=== PATIENT | female | born 1990 | race African-American/Black ===

== ENCOUNTER 2024-01-16 11:17 | Day surgery (SDC) | payer BC ==
[2024-01-09 12:28] VITALS: BMI 36.3
[2024-01-16] MEDS ORDERED: PROPOFOL 20 ML ONE ×3 (12:40→17:12)
[2024-01-16] MEDS ORDERED: MIDAZOLAM HCL 2 MG/2 ML SINGLE DOSE VIAL ONE (12:40)
[2024-01-16] MEDS ORDERED: ceFAZolin SODIUM 1 GM VIAL ONE (12:53)
[2024-01-16] MEDS ORDERED: NITROGLYCERIN 2% OINTMENT - 1GM PACKET TD ONE (12:53)
[2024-01-16] MEDS ORDERED: GENTAMICIN SO4 80 MG/2 ML VIAL ONE (12:53)
[2024-01-16] MEDS ORDERED: LIDOCAINE 1%/EPI 1:100000 (20 ML MULTI DOSE VIAL) ONE (12:54)
[2024-01-16] MEDS ORDERED: BACITRACIN ZINC 15 GM TUBE TOPICAL OINTMENT ONE (12:54)
[2024-01-16] MEDS ORDERED: BUPIVACAINE HCL/EPINEPHRINE/PF 30 ML VIAL IJ ONE (12:54)
[2024-01-16] MEDS ORDERED: PROMETHAZINE HCL 25 MG/1 ML VIAL IVPB PRN (13:51)
[2024-01-16] MEDS ORDERED: ONDANSETRON 4 MG/2 ML VIAL IVPUSH PRN (13:51)
[2024-01-16] MEDS ORDERED: oxyCODONE HCL 5 MG TABLET PO PRN (13:51)
[2024-01-16] MEDS ORDERED: LACTATED RINGERS SOLUTION 1,000 ML IV SCH (14:00)
[2024-01-16] MEDS ORDERED: EPINEPHrine/PF 1 MG/1 ML (1:1,000) AMPULE ONE (14:06)
[2024-01-16] MEDS ORDERED: SODIUM BICARBONATE 8.4% 50 MEQ/50 ML VIAL ONE (14:07)
[2024-01-16] MEDS ORDERED: LIDOCAINE HCL 1%, 10 MG/ML (20ML VIAL) ONE (14:07)
[2024-01-16] MEDS ORDERED: LIDOCAINE HCL 2% (20ML MULTI-DOSE VIAL) ONE (14:15)
[2024-01-16] MEDS ORDERED: ONDANSETRON 4 MG/2 ML VIAL ONE ×2 (14:41→17:22)
[2024-01-16] MEDS ORDERED: DEXAMETHASONE SOD PHOSPHATE 4 MG/1 ML VIAL ONE (14:41)
[2024-01-16] MEDS: BUPIVACAINE HCL/EPINEPHRINE/PF 30 ML VIAL IJ ONE ×2 (14:52→17:30)
[2024-01-16] MEDS ORDERED: MAGNESIUM SULF 50% (8.12 MEQ/2 ML-1 GM VIAL) ONE (16:28)
[2024-01-16] MEDS ORDERED: FENTANYL CITRATE/PF 50 MCG/ML VIAL ONE (17:22)
[2024-01-16] MEDS ORDERED: ACETAMINOPHEN INJECTION 100 ML IVPB ONE (17:22)
[2024-01-16] MEDS: ACETAMINOPHEN 1000 MG/100 ML BAG IVPB ONE (17:55)
[2024-01-16 18:08] VITALS: TEMP 97.3
[2024-01-16 18:27] VITALS: RESP 16
[2024-01-16 18:56] VITALS: BP 112/74; PULSE 88
== END 2024-01-16 18:50 | disposition home or self-care (01) ==
LOC: FASU 11:17
PROVIDERS: ATTEND Plastic Surgery
PROC: 0H0V07Z Alteration of Bilateral Breast with Autologous Tissue Substitute, Open Approach (ICD-10-PCS; 2024-01-16)
PROC: 0JPT0XZ Removal of Tunneled Vascular Access Device from Trunk Subcutaneous Tissue and Fascia, Open Approach (ICD-10-PCS; 2024-01-16)
PROC: 0HB7XZZ Excision of Abdomen Skin, External Approach (ICD-10-PCS; 2024-01-16)
PROC: 0HSXXZZ Reposition Left Nipple, External Approach (ICD-10-PCS; principal; 2024-01-16 14:53)
PROC: 0HSWXZZ Reposition Right Nipple, External Approach (ICD-10-PCS; 2024-01-16 14:53)
DX: Z85.3 Personal history of malignant neoplasm of breast (principal); Z90.13 Acquired absence of bilateral breasts and nipples; Z92.21 Personal history of antineoplastic chemotherapy; Z92.3 Personal history of irradiation; L90.5 Scar conditions and fibrosis of skin
CPT/HCPCS: 71045-TC-FY; 81025; 88300-TC; 88305-TC; 94760; J0131